=== PATIENT | male | born 1940 | race Caucasian/White ===

== ENCOUNTER 2016-05-26 11:10 | Inpatient (IN) | payer MEDICARE, OTHER ==
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
--- NOTE | ~2016-05-26 | EGD ---
EGD REPORT [facility] [address] [place] [place] [address] NAME: BEBETO HERNANDEZ : 44 STATUS : ADM IN PAT#: [id number] AGE: 75 ADM/REG DATE : 05/26/16 MR#: [id number] REPORT SERV DATE: 05/27/16 DICTATED BY: MAIK CARRILLO DATE: 05/27/16 REPORT STATUS : Draft TRANSCRIBED BY: [facility] DATE: 05/27/16 Endoscopy Center Patient Name: Bebeto Hernandez Date of : 1940 Attending MD: MAIK LEBRON MD Procedure Date No Time: 05/27/2016 Procedure: Upper GI endoscopy Indications: Anemia, Heme positive stool Referring MD: Juan Jimenez Medicines: Monitored Anesthesia Care Complications: No immediate complications. Estimated blood loss: Minimal. Procedure: After obtaining informed consent, the endoscope was passed under direct vision. Throughout the procedure, the patient's blood pressure, pulse, and oxygen saturations were monitored continuously. The GIF [id number] was introduced through the mouth, and advanced to the second part of duodenum. The upper GI endoscopy was accomplished without difficulty. The patient tolerated the procedure well. Findings: No gross lesions were noted in the entire esophagus. Four non-bleeding cratered gastric ulcers with no stigmata of bleeding were found in the gastric antrum. The largest lesion was 5 mm in largest dimension. Biopsies were taken with a cold forceps for Helicobacter pylori testing. Estimated blood loss was minimal. Patchy moderate inflammation characterized by congestion (edema) and spot erythema was found in the gastric antrum. This could have been from antral gastropathy, but gastric antral vascular ectasias could be present as well. A single small angioectasia without bleeding was found in the duodenal bulb. The exam was otherwise without abnormality. Impression: - Gastric ulcers with clean base. Biopsied. - Gastritis vs GAVE - Nonbleeding. - A single non-bleeding angioectasia in the duodenum. - The examination was otherwise normal. Recommendation: - [facility]. - Use Protonix (pantoprazole) 40 mg PO BID for 8 weeks. - Repeat the upper endoscopy in 2 months for evaluation of GAVE vs gastropathy after 8 weeks of BID PPI therapy. - Await pathology results. EGD REPORT [address] [place]. [address] NAME: BEBETO HERNANDEZ : 44 STATUS : ADM IN [facility]#: [id number] AGE: 75 ADM/REG DATE : 05/26/16 MR#: [id number] REPORT SERV DATE: 05/27/16 DICTATED BY: MAIK CARRILLO DATE: 05/27/16 REPORT STATUS : Draft TRANSCRIBED BY: [email or web address] DATE: 05/27/16 Procedure Code(s): --- Professional --- 18601, Esophagogastroduodenoscopy, flexible, transoral; with biopsy, single or multiple Diagnosis Code(s): --- Professional --- K25.9, Gastric ulcer, unspecified as acute or chronic, without hemorrhage or perforation K29.70, Gastritis, unspecified, without bleeding K31.819, Angiodysplasia of stomach and duodenum without bleeding D64.9, Anemia, unspecified R19.5, Other fecal abnormalities CPT copyright 2013 [employer]. All rights reserved. The codes documented in this report are preliminary and upon system software programmer review may be revised to meet current compliance requirements. Maik Lebron MD MAIK LEBRON MD 05/27/2016 10:17 AM This report has been signed electronically. Number of Addenda: 0 Note Initiated On: 05/27/2016 9:34 AM Scope Withdrawal Time 0 hours 0 minutes 0 seconds [id number] [id number]
[~2016-05-26 11:10] MED LIST: AMB10 PO; AMB5 PO; ASA5GR PO; ATEN25 PO; ATEN50 PO; BENAZEPRIL PO; C5 PO; CELEBREX1 PO; CIP5 PO; DRONED400 PO; GLUCOTRO10 PO; GLUCPH PO; JANTOVEN5 MG PO; L20 PO; L40 PO; LEVEMIR SC; LIPITOR PO; LIPITOR10 PO; LIPITOR20 PO; LOP100 PO; LOP25 PO; LOP50 PO; LORTAB 5 PO; LOTE10 PO; MCZ25 PO; MESTINON PO; METOPROLOL PO; MOBIC; MOBIC15 MG PO; NORV5 PO; PCET PO; PLAVIX PO; PREV30 PO; PROTONIX PO; PYRID60 PO; REQUIP PO; REQUIP2 PO; REQUIP3 PO; ROCALTROL0.25 MCG PO; SODBICAR10 PO; SODIUM BICARB PO; TAMBOCOR PO; TRIAMCINOLON0.13 TOP; VITAMIN D2000 UNIT PO; VITAMIN D31000 UNIT PO; VITE1000 PO; ZOVIRAX400 MG PO; [UNRECOGNIZED DRUG - OTHER] PO; [UNRECOGNIZED DRUG - OTHER] TOP
[2016-05-26 11:48] LABS: BASOPHILS 0.6 %; BASOPHILS ABSOLUTE 0.11 10/3/uL (0.0-0.16); EOSINOPHILS 3.8 %; EOSINOPHILS ABSOLUTE 0.66 10/3/uL (0.0-0.53); ER CBC TAT 0 Hrs 10 Mins; HEMATOCRIT 19.7 % (40.0-51.0); HEMOGLOBIN 6.2 g/dL (13.6-17.8); IMMATURE GRANULOCYTES 0.9 %; LYMPHOCYTES 15.9 %; LYMPHOCYTES ABSOLUTE 2.77 10/3/uL (0.67-4.30); MEAN CORPUS HGB CONC 31.5 g/dL (32.0-36.0); MEAN CORPUSCULAR HEMOGLOB 30.2 pg (26.0-34.0); MEAN CORPUSCULAR VOLUME 96.1 fL (80-100); MONOCYTES 13.2 %; NEUTROPHILS 65.6 %; NEUTROPHILS ABSOLUTE 11.45 10/3/uL (2.02-8.40); NUCLEATED RED BLOOD CELLS 5.3 /100WBC (0-0); PLATELET COUNT 615 10/3/uL (150-400); RBC DISTRIBUTION WIDTH 17.4 % (12.0-16.0); RED CELL COUNT 2.05 10/6/uL (4.7-6.1); WHITE BLOOD CELLS 17.4 10/3/uL (4.5-10.5)
[2016-05-26 11:51] LABS: IMMATURE GRANULOCYTES ABSOLUTE 0.15 10/3/uL (0.0-0.11); MANUAL DIFF NO %
[2016-05-26 11:59] LABS: BUN (BLOOD UREA NITROGEN) 60 MG/DL (6-23); CALCIUM, SERUM 7.8 MG/DL (8.5-10.4); CHEST PAIN PROFILE TAT 0 Hrs 21 Mins; CHLORIDE, SERUM 112 MMOL/L (96-112); CO2 (CARBON DIOXIDE) 21 MMOL/L (24-34); CREATININE 3.24 MG/DL (0.70-1.30); GFR AFRICAN AMERICAN 21 ML/MIN (>=60); GFR NON AFRICAN AMERICAN 18 ML/MIN (>=60); GLUCOSE, SERUM 177 MG/DL (60-99); POTASSIUM, SERUM 4.8 MMOL/L (3.5-5.3); SODIUM, SERUM 142 MMOL/L (135-148); TROPONIN I <0.02 NG/ML (<0.05)
[2016-05-26 12:12] LABS: BAND NEUTROPHILS 1 %; EOSINOPHILS 3 %; EOSINOPHILS ABSOLUTE (CALC) 0.52 10/3/uL (0.0-0.53); ER DIFF TAT 0 Hrs 34 Mins; IMMATURE GRANS ABSOLUTE (CALC) 0.35 10/3/uL (0.0-0.11); LYMPHOCYTES 14 %; LYMPHOCYTES ABSOLUTE (CALC) 2.44 10/3/uL (0.67-4.30); METAMYELOCYTES 2 %; MONOCYTES 4 %; PLATELET ESTIMATE INC (ADEQUATE); SEGMENTED NEUTROPHIL (0) 76 %; TARGET CELLS OCC (1-2/OIF) (0-1/OIF); TOTAL NUCLEATED CELLS 100
[2016-05-26] MEDS ORDERED: PYRID60 PO (12:44)
[2016-05-26] MEDS ORDERED: LOP100 PO (12:45)
[2016-05-26] MEDS ORDERED: LOM PO (12:45)
[2016-05-26] MEDS ORDERED: Z100 PO (12:45)
[2016-05-26] MEDS ORDERED: LOTE10 PO (12:45)
[2016-05-26 12:46] LABS: ASCORBIC ACID (UR NOT ORDER) 40 (NEG); BILIRUBIN, URINE NEGATIVE (NEG); ER URINALYSIS TAT 0 Hrs 10 Mins; KETONE, URINE NEGATIVE (NEG); LEUKOCYTE ESTERASE(NOT OR TRACE (NEG); NITRITE (URINE) NEG (NEG); WBC (NOT ORDERED) (RFLEX) 2 (0-5)
[2016-05-26] MEDS ORDERED: NORCO1 TA2 PO (12:46)
[2016-05-26] MEDS ORDERED: JANTOVEN6 MG PO (12:47)
[2016-05-26] MEDS ORDERED: NITROLINGUAL SPRAY SL (12:47)
[2016-05-26] MEDS ORDERED: SODBICAR10 PO (12:47)
[2016-05-26] MEDS ORDERED: VITE PO (12:48)
[2016-05-26] MEDS ORDERED: LIPITOR20 PO (12:48)
[2016-05-26] MEDS ORDERED: VITAMIN D2000 UNIT PO (12:48)
[2016-05-26] MEDS ORDERED: AMB5 PO (12:49)
[2016-05-26 12:54] LABS: CPK (IF ELEVATED MB BANDS) 168 U/L (0-200); ULTRASENSITIVE TSH 0.514 MCIU/ML (0.358-3.740)
[2016-05-26 13:03] LABS: INTERNATIONAL NORMAL RATI 15.9 UNITS (-); PARTIAL THROMBO TIME 140.7 SEC (22.5-37.2); PROTIME (NOT ORD) 113.9 SEC (12.0-14.5)
[2016-05-26 22:58] LABS: HEMATOCRIT 22.7 % (40.0-51.0); HEMOGLOBIN 7.4 g/dL (13.6-17.8)
[2016-05-27 04:00] LABS: BASOPHILS 0.6 %; BASOPHILS ABSOLUTE 0.11 10/3/uL (0.0-0.16); EOSINOPHILS 3.3 %; EOSINOPHILS ABSOLUTE 0.63 10/3/uL (0.0-0.53); HEMATOCRIT 22.5 % (40.0-51.0); HEMOGLOBIN 7.4 g/dL (13.6-17.8); IMMATURE GRANULOCYTES 0.4 %; IMMATURE GRANULOCYTES ABSOLUTE 0.08 10/3/uL (0.0-0.11); LYMPHOCYTES 20.2 %; LYMPHOCYTES ABSOLUTE 3.86 10/3/uL (0.67-4.30); MEAN CORPUS HGB CONC 32.9 g/dL (32.0-36.0); MEAN CORPUSCULAR HEMOGLOB 30.8 pg (26.0-34.0); MEAN CORPUSCULAR VOLUME 93.8 fL (80-100); MONOCYTES 12.7 %; MONOCYTES ABSOLUTE 2.42 10/3/uL (0.21-1.20); NEUTROPHILS 62.8 %; NEUTROPHILS ABSOLUTE 12.03 10/3/uL (2.02-8.40); NUCLEATED RED BLOOD CELLS 3.3 /100WBC (0-0); PLATELET COUNT 515 10/3/uL (150-400); RBC DISTRIBUTION WIDTH 15.8 % (12.0-16.0); WHITE BLOOD CELLS 19.1 10/3/uL (4.5-10.5)
[2016-05-27 04:01] LABS: MANUAL DIFF NO %
[2016-05-27 04:06] LABS: INTERNATIONAL NORMAL RATI 1.7 UNITS (-); PARTIAL THROMBO TIME 37.2 SEC (22.5-37.2)
[2016-05-27 04:08] LABS: PROTIME (NOT ORD) 20.1 SEC (12.0-14.5)
[2016-05-27 04:10] LABS: ALBUMIN 2.8 G/DL (3.5-5.0); CALCIUM, SERUM 7.9 MG/DL (8.5-10.4); CHLORIDE, SERUM 113 MMOL/L (96-112); CO2 (CARBON DIOXIDE) 21 MMOL/L (24-34); CREATININE 2.98 MG/DL (0.70-1.30); DIRECT BILIRUBIN 0.2 MG/DL (0.0-0.4); GFR AFRICAN AMERICAN 23 ML/MIN (>=60); GFR NON AFRICAN AMERICAN 20 ML/MIN (>=60); POTASSIUM, SERUM 4.6 MMOL/L (3.5-5.3); SGOT(AST) 25 U/L (5-40); SGPT(ALT) 20 U/L (5-65); SODIUM, SERUM 144 MMOL/L (135-148); TROPONIN I <0.02 NG/ML (<0.05)
[2016-05-27 04:13] LABS: ALKALINE PHOSPHATASE 144 U/L (45-117); BUN (BLOOD UREA NITROGEN) 54 MG/DL (6-23); GLUCOSE, SERUM 95 MG/DL (60-99); INDIRECT BILIRUBIN(NOT ORDER) 0.8 MG/DL (0.1-0.9)
[2016-05-27 22:14] LABS: HEMATOCRIT 29.4 % (40.0-51.0); HEMOGLOBIN 9.7 g/dL (13.6-17.8)
[2016-05-28 06:44] LABS: BASOPHILS 0.5 %; BASOPHILS ABSOLUTE 0.07 10/3/uL (0.0-0.16); EOSINOPHILS 4.8 %; EOSINOPHILS ABSOLUTE 0.72 10/3/uL (0.0-0.53); HEMATOCRIT 29.1 % (40.0-51.0); IMMATURE GRANULOCYTES 0.3 %; IMMATURE GRANULOCYTES ABSOLUTE 0.05 10/3/uL (0.0-0.11); LYMPHOCYTES 18.9 %; LYMPHOCYTES ABSOLUTE 2.82 10/3/uL (0.67-4.30); MEAN CORPUS HGB CONC 34.4 g/dL (32.0-36.0); MEAN CORPUSCULAR HEMOGLOB 31.4 pg (26.0-34.0); MEAN CORPUSCULAR VOLUME 91.5 fL (80-100); MEAN PLATELET VOLUME 9.9 fL (9.2-13.0); MONOCYTES 14.9 %; MONOCYTES ABSOLUTE 2.22 10/3/uL (0.21-1.20); NEUTROPHILS 60.6 %; NEUTROPHILS ABSOLUTE 9.01 10/3/uL (2.02-8.40); PLATELET COUNT 504 10/3/uL (150-400); WHITE BLOOD CELLS 14.9 10/3/uL (4.5-10.5)
[2016-05-28 06:46] LABS: ALBUMIN 2.7 G/DL (3.5-5.0); CALCIUM, SERUM 8.1 MG/DL (8.5-10.4); CHLORIDE, SERUM 113 MMOL/L (96-112); CO2 (CARBON DIOXIDE) 21 MMOL/L (24-34); CREATININE 2.61 MG/DL (0.70-1.30); GFR AFRICAN AMERICAN 27 ML/MIN (>=60); GFR NON AFRICAN AMERICAN 23 ML/MIN (>=60); GLUCOSE, SERUM 101 MG/DL (60-99); PHOSPHORUS, SERUM 3.7 MG/DL (2.5-4.5); POTASSIUM, SERUM 4.7 MMOL/L (3.5-5.3); SODIUM, SERUM 142 MMOL/L (135-148)
[2016-05-28 06:47] LABS: BUN (BLOOD UREA NITROGEN) 41 MG/DL (6-23); MANUAL DIFF NO %; RED CELL COUNT 3.18 10/6/uL (4.7-6.1)
[2016-05-28] MEDS ORDERED: PROTONIX PO (17:25)
[2016-05-28 17:42] LABS: INTERNATIONAL NORMAL RATI 1.3 UNITS (-)
[2016-05-28 17:45] LABS: PROTIME (NOT ORD) 16.3 SEC (12.0-14.5)
== END 2016-05-28 18:50 | disposition home or self-care (01) | DRG 378 ==
LOC: ER 11:10 → 6NO 15:13
PROVIDERS: Hospitalist; Internal Medicine; Internal Medicine Gastroenterology
PROC: 30233N1 Transfusion of Nonautologous Red Blood Cells into Peripheral Vein, Percutaneous Approach (ICD-10-PCS; 2016-05-27)
PROC: 30233K1 Transfusion of Nonautologous Frozen Plasma into Peripheral Vein, Percutaneous Approach (ICD-10-PCS; 2016-05-27)
PROC: 0DB68ZX Excision of Stomach, Via Natural or Artificial Opening Endoscopic, Diagnostic (ICD-10-PCS; principal; 2016-05-27 09:56)
DX: K25.4 Chronic or unspecified gastric ulcer with hemorrhage (principal); D68.32 Hemorrhagic disorder due to extrinsic circulating anticoagulants; N18.4 Chronic kidney disease, stage 4 (severe); K76.6 Portal hypertension; E11.22 Type 2 diabetes mellitus with diabetic chronic kidney disease; E11.42 Type 2 diabetes mellitus with diabetic polyneuropathy; I48.0 Paroxysmal atrial fibrillation; D62 Acute posthemorrhagic anemia; I25.119 Atherosclerotic heart disease of native coronary artery with unspecified angina pectoris; I48.91 Unspecified atrial fibrillation; K74.60 Unspecified cirrhosis of liver; T45.515A Adverse effect of anticoagulants, initial encounter; R13.10 Dysphagia, unspecified; K31.819 Angiodysplasia of stomach and duodenum without bleeding; K29.70 Gastritis, unspecified, without bleeding; K44.9 Diaphragmatic hernia without obstruction or gangrene; K31.89 Other diseases of stomach and duodenum; K57.30 Diverticulosis of large intestine without perforation or abscess without bleeding; K64.8 Other hemorrhoids; N18.9 Chronic kidney disease, unspecified; G25.81 Restless legs syndrome; G47.33 Obstructive sleep apnea (adult) (pediatric); G70.00 Myasthenia gravis without (acute) exacerbation; K21.9 Gastro-esophageal reflux disease without esophagitis; E78.5 Hyperlipidemia, unspecified; E66.9 Obesity, unspecified; I12.9 Hypertensive chronic kidney disease with stage 1 through stage 4 chronic kidney disease, or unspecified chronic kidney disease; D47.3 Essential (hemorrhagic) thrombocythemia; Z86.73 Personal history of transient ischemic attack (TIA), and cerebral infarction without residual deficits; Z87.11 Personal history of peptic ulcer disease; Z90.81 Acquired absence of spleen; Z87.891 Personal history of nicotine dependence; Z96.659 Presence of unspecified artificial knee joint; Z68.29 Body mass index [BMI] 29.0-29.9, adult
CPT/HCPCS: 36415; 71020; 80048; 80069; 80076; 81001; 82550; 82962; 83735; 84443; 84484; 85014; 85018; 85025; 85610; 85730; 86850; 86900; 86901; 86920; 88305; 88342; 93005; 99285; A9270-GY; C9113; J1940; J2370; J3430; P9016; P9059